=== PATIENT | female | born 1940 | race African-American/Black ===

== ENCOUNTER → 2024-06-22 | Outpatient (CLI) | payer OTHER, MEDICAID, SELFPAY ==
[2024-06-22 14:59] LABS: Basophils % (Auto) 0 % (0-2.5); Eosinophils # (Auto) 0.1 Thou/mm3 (0.0-0.5); Eosinophils % (Auto) 3 % (0-10); Hematocrit 26.7 % (36.0-46.0); Hemoglobin 8.9 g/dL (12.0-16.0); Immature Granulocytes % (Auto) 1 % (0-0); Immature Granulocytes Auto 0.02 Thou/mm3 (0.00-0.00); Lymphocytes # (Auto) 0.9 Thou/mm3 (1.0-4.8); Lymphocytes % (Auto) 23 % (10-50); Mean Corpuscular HGB Conc 33.3 g/dl (31.0-37.0); Mean Corpuscular Hemoglobin 33.1 pg (25.0-35.0); Mean Corpuscular Volume 99 fL (80-100); Monocytes # (Auto) 0.5 Thou/mm3 (0.0-0.8); Monocytes % (Auto) 12 % (0-12); Neutrophils # (Auto) 2.5 Thou/mm3 (1.8-7.7); Neutrophils % (Auto) 62 % (37-80); Nucleated Red Blood Cell % 0 /100 WBC (0); Platelet Count 150 Thou/mm3 (140-440); RDW Standard Deviation 57.7 fL (36.4-46.3); Red Blood Count 2.69 Miln/mm3 (4.00-5.20); White Blood Count 4.1 Thou/mm3 (3.6-11.0)
[2024-06-22 15:32] LABS: Alanine Aminotransferase 37 U/L (10-49); Albumin, Serum 4.6 gm/dL (3.4-4.8); Albumin/Globulin Ratio 1.8 (1.2-2.2); Alkaline Phosphatase 168 U/L (46-116); Anion Gap 7 (7-16); Aspartate Amino Transferase 23 U/L (0-34); BUN/Creatinine Ratio 6 Ratio (12-20); Bilirubin,Total 0.5 mg/dL (0.3-1.2); Blood Urea Nitrogen 20 mg/dL (9-23); Calcium 9.7 mg/dL (8.3-10.6); Calcium (Corrected) 9.7 mg/dL (8.5-10.1); Carbon Dioxide 28.7 mMol/L (20.0-31.0); Chloride 102 mMol/L (98-107); Creatinine (Component) 3.5 mg/dL (0.6-1.3); Globulin 2.6 gm/dL (2.3-3.5); Glucose 103 mg/dL (74-106); Osmolality,Calculated 278 (275-295); Potassium 3.5 mMol/L (3.4-5.1); Sodium 138 mMol/L (136-145); Total Protein 7.2 gm/dL (5.7-8.2); eGFR 12 See Note
== END | disposition home or self-care (01) ==
LOC: COPL 14:16
PROVIDERS: PCP Family Medicine; Referring Provider Family Medicine; Visit Provider Family Medicine
DX: D64.9 Anemia, unspecified (principal); R19.5 Other fecal abnormalities
CPT/HCPCS: 36415; 80053; 85025

== ENCOUNTER → 2024-11-28 | Outpatient (CLI) | payer OTHER, MEDICAID, SELFPAY ==
[2024-11-28 14:26] LABS: Basophils % (Auto) 0 % (0-2.5); Eosinophils # (Auto) 0.2 Thou/mm3 (0.0-0.5); Eosinophils % (Auto) 4 % (0-10); Hemoglobin 10.8 g/dL (12.0-16.0); Immature Granulocytes % (Auto) 0 % (0-0); Immature Granulocytes Auto 0.01 Thou/mm3 (0.00-0.00); Lymphocytes # (Auto) 0.9 Thou/mm3 (1.0-4.8); Lymphocytes % (Auto) 22 % (10-50); Mean Corpuscular HGB Conc 31.8 g/dl (31.0-37.0); Mean Corpuscular Hemoglobin 30.6 pg (25.0-35.0); Mean Corpuscular Volume 96 fL (80-100); Monocytes # (Auto) 0.6 Thou/mm3 (0.0-0.8); Monocytes % (Auto) 16 % (0-12); Neutrophils # (Auto) 2.3 Thou/mm3 (1.8-7.7); Neutrophils % (Auto) 57 % (37-80); Nucleated Red Blood Cell % 0 /100 WBC (0); Platelet Count 120 Thou/mm3 (140-440); RDW Standard Deviation 58.8 fL (36.4-46.3); Red Blood Count 3.53 Miln/mm3 (4.00-5.20)
== END | disposition home or self-care (01) ==
LOC: COPL 13:28
PROVIDERS: PCP Family Medicine; Referring Provider Nurse Practitioner Family; Visit Provider Nurse Practitioner Family
DX: I10 Essential (primary) hypertension (principal)
CPT/HCPCS: 36415; 82043; 82570; 85025

== ENCOUNTER → 2024-12-05 | Outpatient (CLI) | payer OTHER, MEDICAID, SELFPAY ==
[2024-12-05 10:49] LABS: Glucose Estimated Average 114 mg/dL (80-131); Hemoglobin A1C 5.6 % Hgb (4.8-6.0)
[2024-12-05 10:56] LABS: Alanine Aminotransferase 16 U/L (10-49); Albumin, Serum 3.9 gm/dL (3.4-4.8); Albumin/Globulin Ratio 1.4 (1.2-2.2); Alkaline Phosphatase 88 U/L (46-116); Anion Gap 11 (7-16); Aspartate Amino Transferase 13 U/L (0-34); BUN/Creatinine Ratio 6 Ratio (12-20); Bilirubin,Total 0.4 mg/dL (0.3-1.2); Blood Urea Nitrogen 41 mg/dL (9-23); Calcium 9.2 mg/dL (8.3-10.6); Calcium (Corrected) 9.3 mg/dL (8.5-10.1); Carbon Dioxide 26.7 mMol/L (20.0-31.0); Chloride 105 mMol/L (98-107); Cholesterol 133 mg/dL (132-200); Creatinine (Component) 7.4 mg/dL (0.6-1.3); Globulin 2.8 gm/dL (2.3-3.5); Glucose 108 mg/dL (74-106); HDL Cholesterol 65 mg/dL (40-60); LDL Cholesterol,Calculated 54 mg/dL (0-130); Osmolality,Calculated 296 (275-295); Potassium 4.6 mMol/L (3.4-5.1); Sodium 143 mMol/L (136-145); Thyroid Stimulating Hormone 2.12 uIU/mL (0.55-4.78); Total Protein 6.7 gm/dL (5.7-8.2); Triglycerides 71 mg/dL (30-150); eGFR 5 See Note
[2024-12-05 12:18] LABS: Creatinine MALB Rnd Ur 70 mg/dL (30-125); Microalbumin Creat Ratio 491 mg/gCrea (<30); Microalbumin, Random Urine 344 mg/L (0-300)
== END | disposition home or self-care (01) ==
LOC: COPL 09:27
PROVIDERS: PCP Family Medicine; Referring Provider Nurse Practitioner Family; Visit Provider Nurse Practitioner Family
DX: I10 Essential (primary) hypertension (principal)
CPT/HCPCS: 36415; 80053; 80061; 82043; 82570; 83036; 84443

== ENCOUNTER 2025-01-22 13:59 | Emergency (ER) | payer OTHER, MEDICARE, MEDICAID, SELFPAY ==
--- NOTE | 2025-01-22 14:07 | EKG_ITS ---
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
[2025-01-22 14:10] VITALS: BP 184/83; PULSE 64; RESP 18; TEMP 36.8; O2SAT 76; O2SAT 95; BMI 21.6
--- NOTE | 2025-01-22 14:15 | PC.NURSE ---
PT CAME IN WITH C/O SOB X 2 DAYS WITH INCREASED SOB TODAY. PT IS A DIALYSIS PT AND HAD DIALYSIS YESTERDAY AND PER PT SHE RECEIVED FULL TREATMENT. NO C/O PAIN. RESPIRATIONS EVEN AND UNLABORED AT THIS TIME. PT PLACED ON CC MONITOR. EKG DONE ON PT ARRIVAL
--- NOTE | 2025-01-22 16:03 | XR_ITS ---
Examination: PA lateral chest 2 views TECHNIQUE: Upright PA and lateral chest 2 views Date and time: January 22, 2025 1642 hours Comparison May 23, 2023 INDICATIONS: Weakness shortness of breath fever today. FINDINGS: Moderate CHF Vewc-dp-kakxpwva cardiac contour, prominent vascular congestion with perihilar edema Right base pneumonia Small bilateral pleural effusions Right internal jugular dialysis catheter tip SVC satisfactory position IMPRESSION: Moderate CHF Right base pneumonia
[2025-01-22 16:18] VITALS: BP 206/90; PULSE 56; RESP 15; TEMP 36.6; O2SAT 97
[2025-01-22 16:33] LABS: Basophils % (Auto) 0 % (0-2.5); Eosinophils # (Auto) 0.1 Thou/mm3 (0.0-0.5); Eosinophils % (Auto) 3 % (0-10); Hematocrit 30.5 % (36.0-46.0); Hemoglobin 9.8 g/dL (12.0-16.0); Immature Granulocytes % (Auto) 0 % (0-0); Immature Granulocytes Auto 0.01 Thou/mm3 (0.00-0.00); Lymphocytes # (Auto) 0.7 Thou/mm3 (1.0-4.8); Lymphocytes % (Auto) 18 % (10-50); Mean Corpuscular HGB Conc 32.1 g/dl (31.0-37.0); Mean Corpuscular Hemoglobin 32.8 pg (25.0-35.0); Mean Corpuscular Volume 102 fL (80-100); Monocytes # (Auto) 0.4 Thou/mm3 (0.0-0.8); Monocytes % (Auto) 10 % (0-12); Neutrophils # (Auto) 2.7 Thou/mm3 (1.8-7.7); Neutrophils % (Auto) 68 % (37-80); Nucleated Red Blood Cell % 0 /100 WBC (0); Platelet Count 130 Thou/mm3 (140-440); RDW Standard Deviation 61.7 fL (36.4-46.3); Red Blood Count 2.99 Miln/mm3 (4.00-5.20)
--- NOTE | 2025-01-22 16:41 | PC.NURSE ---
PT TO X-RAY
[2025-01-22 17:04] LABS: Alanine Aminotransferase < 7 U/L (10-49); Albumin, Serum 3.7 gm/dL (3.4-4.8); Albumin/Globulin Ratio 1.7 (1.2-2.2); Alkaline Phosphatase 72 U/L (46-116); Anion Gap 12 (7-16); Aspartate Amino Transferase 14 U/L (0-34); BUN/Creatinine Ratio 5 Ratio (12-20); Bilirubin,Total 0.5 mg/dL (0.3-1.2); Blood Urea Nitrogen 32 mg/dL (9-23); Calcium (Corrected) 9.2 mg/dL (8.5-10.1); Chloride 103 mMol/L (98-107); Estimated Creatinine Clearance 6.5 mL/min (>60); Globulin 2.2 gm/dL (2.3-3.5); Glucose 107 mg/dL (74-106); Osmolality,Calculated 295 (275-295); Potassium 4.2 mMol/L (3.4-5.1); Sodium 145 mMol/L (136-145); Total Protein 5.9 gm/dL (5.7-8.2); eGFR 6 See Note
[2025-01-22 17:10] VITALS: BP 187/87; PULSE 60; RESP 18; O2SAT 92
--- NOTE | 2025-01-22 17:21 | PD.EDSOB ---
ED SOB =RME/HPI General Chief Complaint: Shortness of Breath/Dyspnea Stated Complaint: SOB Time Seen by Provider: 01/22/25 15:44 Arrival date/time: 01/22/25 13:59 RME / HPI RME / HPI Narrative: 84 year old female with history of CAD s/p stenting, hypertension, ESRD on HD M/W/F presents to the ED for shortness of breath today. While in the ED patient reports earlier today her oxygen saturations were in the 60s. States she does have oxygen at home which she uses as needed although states she normally does not require oxygen. While in the ED denies feeling short of breath. Denies chest pain, cough, leg swelling or recent ilness. States she has not missed any dialysis treatments and was last dialyzed yesterday. Related Data Home Medications ?Medication ?Instructions ?Recorded ?Confirmed carvedilol 12.5 mg tablet (Coreg) 12.5 mg PO BID 12/29/17 05/23/23 atorvastatin 80 mg tablet 80 mg PO QDAY 09/14/19 05/23/23 clonidine HCl 0.2 mg tablet 0.2 mg PO TID 06/09/20 05/23/23 furosemide 40 mg tablet 40 mg PO BID 06/09/20 05/23/23 aspirin 81 mg tablet,delayed 81 mg PO QDAY 04/16/22 05/23/23 release hydroxyzine HCl 25 mg tablet 25 mg PO HS PRN Itching 04/16/22 05/23/23 losartan 100 mg tablet 100 mg PO QDAY 04/16/22 05/23/23 pantoprazole 40 mg tablet,delayed 40 mg PO QDAY 04/16/22 05/23/23 release nifedipine 90 mg tablet,extended 90 mg PO QDAY 09/20/22 05/23/23 release Previous Rx's ?Medication ?Instructions ?Recorded amoxicillin 875 mg-potassium 1 tab PO Q12H #10 tabs 01/22/25 clavulanate 125 mg tablet doxycycline monohydrate 100 mg 100 mg PO BID #14 caps 01/22/25 capsule Allergies Allergy/AdvReac Type Severity Reaction Status Date / Time ibuprofen (From Motrin) Allergy Severe Per Renal Verified 01/22/25 14:17 MD NONE to be GIVEn ketorolac (From Toradol) Allergy Severe Per Renal Verified 01/22/25 14:17 MD NONE TO BE GIVEN Review of Systems Review of Systems Systems Reviewed: All systems reviewed, normal except as documented Past Medical History Past Medical History CARDIAC: Positive Cardiac Disorders, Myocardial Infarction, Angina, Coronary Artery Disease, Hypercholesterolemia, Edema and Hypertension GASTROINTESTINAL: Positive Hemorrhoids GENITOURINARY: Positive Genitourinary Disorders, Renal Disease and Dialysis (M-W-F) REPRODUCTIVE: Positive Previous Pregnancies MUSCULOSKELETAL: Positive Musculoskeletal Disorders, Arthritis and Gout HEMATOLOGIC: Positive Anemia OTHER HISTORY: Positive Blood Transfusions Family History FAMILY HISTORY: Positive Family Gastrointestinal Problems Surgical History SURGICAL: Positive Coronary Stent, Cardiac Catheterization, Angiogram, Abdominal Surgery, Joint Replacement and Hysterectomy Social History SMOKING STATUS: Never smoker SECOND HAND EXPOSURE: No ED Exam Narrative Physical exam: GENERAL APPEARANCE: AxOx4, no obvious distress, nontoxic appearing HEENT: NC, AT. MMM. EOMI, clear conjunctiva, oropharynx clear. NECK: Supple without lymphadenopathy. No stiffness or restricted ROM. HEART: Normal rate and regular rhythm, normal S1/S1, no m/r/g LUNGS: Diminished breath sounds bilaterally. CTAB. No crackles or wheezes are heard. ABDOMEN: Soft, nontender, nondistended with good bowel sounds heard. BACK: No midline C/T/L spine pain or deformity, No CVAT, no obvious deformity. EXTREMITIES: Without cyanosis, clubbing or edema. MUSCULOSKELETAL: FROM of all major joints, no chest tenderness NEUROLOGICAL: Grossly nonfocal. Alert and oriented, moving all 4 extremities. CN not formally tested but appear grossly intact. Skin: Warm and dry without any rash. Course Quality Measures none Orders Category Date Time Status Bedside COVID-19 Antigen Test NOW Care 01/22/25 16:03 Active Bedside Influenza A&B Antigen Test NOW Care 01/22/25 16:03 Completed EKG (ED ONLY) *Do not use* NOW Care 01/22/25 14:48 Completed EKG (ED Only) Stat Exams 01/22/25 14:07 Draft XR chest 2V Stat Exams 01/22/25 16:03 Completed CBC Stat Lab 01/22/25 16:27 Completed CMP [Comprehensive Metabolic Panel] Stat Lab 01/22/25 16:27 Completed Doxycycline [Vibramycin] Med 01/22/25 17:39 Discontinued 100 mg PO X1 ONE cefTRIAXone [Rocephin] 1,000 mg Med 01/22/25 18:05 Discontinued Lidocaine 1% 20 ml [Xylocaine 1% 20 ML] 2.1 ml IM X1 cefTRIAXone/D5w 1gm IV premix [Rocephin/D5w 1gm IV Med 01/22/25 17:39 Discontinued premix] 1 gm in 50 ml IV X1 Reevaluation(s) Reevaluation #1: Patient reports she has been congested with some sweats at home. Chest xray here is essentially clear. I advised the patient wear oxygen around the clock and take the antibiotics. Instructed patient to follow up with PCP. At this time patient is saturating 92-93% on 4L nasal cannula. Time: 17:33 Vital Signs Vital signs: Vital Signs Temperature 98.2 F 01/22/25 14:10 Pulse Rate 64 01/22/25 14:10 Respiratory Rate 18 01/22/25 14:10 Blood Pressure 184/83 H 01/22/25 14:10 Pulse Oximetry (%) 95 01/22/25 14:10 Oxygen Delivery Method Nasal Cannula 01/22/25 14:10 Oxygen Flow Rate 6 01/22/25 14:10 Shortness of Breath / Dyspnea MDM Narrative MDM Narrative:: Sherrie Leiva am scribing for and in the presence of Dr. Cortez. Patient data External records reviewed:: [facility] previous records (I reviewed admission from 05/23/2023 through 05/26/2023) and EMS form Clinical information provided by:: patient and EMS Social determinants that could affect healthcare access:: none Patient has the following chronic illnesses:: CAD s/p stenting, hypertension, ESRD on HD M/W/F How is presenting disease/condition affected by chronic disease/condition?: exacerbated by Evaluation data The following diagnostics were reviewed and interpreted by me:: lab results, radiology exam(s) and EKG tracing(s) (EKG 01/22/2025 @ 14:07. Sinus rhythm, rate 62, no STEMI. ) Lab and/or radiology exams considered but not ordered:: None Interpretation Summary: Ordering Physician: Ky Cortez MD Date of Service: 01/22/25 Procedure(s): XR chest 2V Accession Number(s): [id number] cc: Ky Cortez MD; Ap Dale MD; Veronica Brian MD~ Examination: PA lateral chest 2 views TECHNIQUE: Upright PA and lateral chest 2 views Date and time: January 22, 2025 1642 hours Comparison May 23, 2023 INDICATIONS: Weakness shortness of breath fever today. FINDINGS: Moderate CHF Rlgl-sy-kwduviwl cardiac contour, prominent vascular congestion with perihilar edema Right base pneumonia Small bilateral pleural effusions Right internal jugular dialysis catheter tip SVC satisfactory position IMPRESSION: Moderate CHF Right base pneumonia Dictated By: Ap Dale MD Signed By: <Electronically signed by Ap Dale MD in OV> 01/22/25 1729 Medications / Prescriptions Medications or Prescriptions considered but not ordered:: None Medication administrations:: Medication Administration History Discontinued Medications Ceftriaxone Sodium 1,000 mg/ (Lidocaine HCl 2.1 ml) 0 mg IM X1 ONE Stop: 01/22/25 18:06 Last Admin: 01/22/25 18:23 Dose: 1,000 mg Documented By: DO Doxycycline Hyclate (Doxycycline 100 Mg Tablet) 100 mg PO X1 ONE Stop: 01/22/25 17:40 Last Admin: 01/22/25 17:56 Dose: 100 mg Documented By: DO Ceftriaxone Sodium/Dextrose (Rocephin/D5w 1gm Iv Premix) 1 gm in 50 mls @ 100 mls/hr IV X1 ONE Stop: 01/22/25 18:08 Last Admin: 01/22/25 18:04 Dose: Not Given Documented By: DO Non-Admin Reason: route changed See above Consultations Consultation(s) initiated? (list below): No Diagnosis Shortness of Breath Differential Diagnosis: acute exacerbation of chronic obstructive airways disease, congestive heart failure, community acquired pneumonia and other (pleural effusion ) Most likely diagnosis given after review of the tests above:: Pneumonia ESRD on HD Admission Indicated Admission indicated?: not indicated Admission Request Was there a request for admission?: No Disposition Plan Disposition Plan: Discharge Discharge Attestation Discharge Attestation: The patient and all family members were given an opportunity to ask questions and understood the discharge instructions. Discharge instructions specifically effects, indications for sooner follow up or return to the emergency department, and the expected course of current diagnosis. Patient condition: Stable Discharge Plan Plan Patient Disposition: HOME (Self Care) Prescriptions/Referrals Prescriptions/Med Rec: New amoxicillin-pot clavulanate 875-125 mg tablet 1 tab PO Q12H Qty: 10 0RF doxycycline monohydrate 100 mg capsule 100 mg PO BID Qty: 14 0RF No Action carvedilol [Coreg] 12.5 mg Tablet 12.5 mg PO BID furosemide 40 mg Tablet 40 mg PO BID clonidine HCl 0.2 mg Tablet 0.2 mg PO TID aspirin 81 mg Tablet,Delayed Release (Dr/Ec) 81 mg PO QDAY pantoprazole 40 mg Tablet,Delayed Release (Dr/Ec) 40 mg PO QDAY hydroxyzine HCl 25 mg Tablet 25 mg PO HS PRN (Reason: Itching) losartan 100 mg Tablet 100 mg PO QDAY atorvastatin 80 mg Tablet 80 mg PO QDAY nifedipine 90 mg Tablet Extended Release 90 mg PO QDAY Referrals: Veronica Brian MD [Primary Care Provider] - In 1 week Problem List Clinical Impression: Pneumonia, End-stage renal disease (ESRD) Patient/Caregiver Discharge Instructions Education Materials: ED Chronic Kidney Disease (CKD), ED Pneumonia (Adult) Additional Instructions: Follow-up your primary doctor in 2-3 days for recheck. Wear your home oxygen at 3L around the clock. Return ER sooner if symptoms worsen or for any new or concerning issues. Print Language: Portuguese Stand Alone Forms: Ada Award Info., Patient Portal Info Letter
[2025-01-22] MEDS: DOXYCYCLINE 100 MG TABLET PO (17:56)
[2025-01-22 18:14] VITALS: BP 192/94; PULSE 58; RESP 15; TEMP 36.7; O2SAT 96
[2025-01-22] MEDS: cefTRIAXone 1,000 MG, LIDOCAINE 1% 20 ML 2.1 ML IM (18:23)
[2025-01-22 19:13] VITALS: BP 198/86; PULSE 60; RESP 14; TEMP 37; O2SAT 99
[2025-01-22 20:36] VITALS: BP 160/85; PULSE 75; RESP 14; TEMP 37; O2SAT 99
== END 2025-01-22 20:37 | disposition home or self-care (01) ==
PROVIDERS: Emergency Provider Emergency Medicine; PCP Family Medicine
DX: I13.2 Hypertensive heart and chronic kidney disease with heart failure and with stage 5 chronic kidney disease, or end stage renal disease (principal); I50.9 Heart failure, unspecified; J18.9 Pneumonia, unspecified organism; N18.6 End stage renal disease; R94.31 Abnormal electrocardiogram [ECG] [EKG]; I25.119 Atherosclerotic heart disease of native coronary artery with unspecified angina pectoris; I25.2 Old myocardial infarction; E78.00 Pure hypercholesterolemia, unspecified; Z95.5 Presence of coronary angioplasty implant and graft
CPT/HCPCS: 36415; 71046; 80053; 85025; 87400; 87811; 93005; 96372; 99283; J0696; J3490; A9270

== ENCOUNTER → 2025-04-01 | Outpatient (CLI) | payer OTHER, MEDICAID, SELFPAY ==
--- NOTE | 2025-04-01 13:25 | XR_ITS ---
Examination: Lumbar spine, 5 views Technique: Lumbar spine AP, lateral, coned lateral lower lumbar spine, bilateral obliques 5 views Date and time: April 01, 2025 1346 hours INDICATIONS: Low back pain years. FINDINGS: Severe osteopenia Left hip hemiarthroplasty with satisfactory alignment Diffuse prominent facet arthropathy Incidental note large amounts of stool throughout the colon No acute lumbar fracture Mild disc narrowing L5-S1 L4-L5 5 mm soft tissue lumbar disc bulge L3-L4 partially calcified 7 mm lumbar disc bulge IMPRESSION: Severe osteopenia No lumbar fractures Calcified lumbar disc bulges L4-L5, L3-L4
== END | disposition home or self-care (01) ==
LOC: CDIM 13:15
PROVIDERS: Referring Provider Internal Medicine Nephrology; Visit Provider Internal Medicine Nephrology
DX: M85.88 Other specified disorders of bone density and structure, other site (principal); M51.86 Other intervertebral disc disorders, lumbar region
CPT/HCPCS: 72110

== ENCOUNTER 2025-04-20 17:46 | Emergency (ER) | payer OTHER, MEDICAID, SELFPAY ==
[2025-04-20 18:03] VITALS: BP 171/89; PULSE 64; RESP 18; TEMP 36.4; O2SAT 95; BMI 22.3
--- NOTE | 2025-04-20 18:10 | EKG_ITS ---
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
--- NOTE | 2025-04-20 18:31 | PD.EDSYNC ---
ED Syncope RME/HPI General Chief Complaint: Syncope / Near Syncope Stated Complaint: NEAR SYNCOPE Time Seen by Provider: 04/20/25 18:27 Arrival date/time: 04/20/25 17:46 RME / HPI RME / HPI narrative: 84-year-old female patient with significant history of hypertension, ESRD on hemodialysis last hemodialysis yesterday, came in for evaluation regarding sudden onset of dizziness. Patient was standing and developed sudden onset of dizziness, severity moderate. Patient also vomited once. Nonbloody. Patient denies any upper or lower extremity weakness. On my initial evaluation patient dizziness is totally gone. Related Data Home Medications ?Medication ?Instructions ?Recorded ?Confirmed carvedilol 12.5 mg tablet (Coreg) 12.5 mg PO BID 12/29/17 05/23/23 atorvastatin 80 mg tablet 80 mg PO QDAY 09/14/19 05/23/23 clonidine HCl 0.2 mg tablet 0.2 mg PO TID 06/09/20 05/23/23 furosemide 40 mg tablet 40 mg PO BID 06/09/20 05/23/23 aspirin 81 mg tablet,delayed 81 mg PO QDAY 04/16/22 05/23/23 release hydroxyzine HCl 25 mg tablet 25 mg PO HS PRN Itching 04/16/22 05/23/23 losartan 100 mg tablet 100 mg PO QDAY 04/16/22 05/23/23 pantoprazole 40 mg tablet,delayed 40 mg PO QDAY 04/16/22 05/23/23 release nifedipine 90 mg tablet,extended 90 mg PO QDAY 09/20/22 05/23/23 release Previous Rx's ?Medication ?Instructions ?Recorded amoxicillin 875 mg-potassium 1 tab PO Q12H #10 tabs 01/22/25 clavulanate 125 mg tablet doxycycline monohydrate 100 mg 100 mg PO BID #14 caps 01/22/25 capsule Allergies Allergy/AdvReac Type Severity Reaction Status Date / Time ibuprofen (From Motrin) Allergy Severe Per Renal Verified 01/22/25 14:17 MD NONE to be GIVEn ketorolac (From Toradol) Allergy Severe Per Renal Verified 01/22/25 14:17 MD NONE TO BE GIVEN Review of Systems Review of Systems Narrative Review of Systems: Review of system reviewed and within normal limits except mentioned in HPI ED Exam Narrative Physical exam: VITAL SIGNS: Reviewed. GENERAL APPEARANCE: Alert and interactive, follows commands, no acute distress, HEAD AND FACE: Non-traumatic. ENT: PERRL, pink conjunctivitis, eyelid no trauma, Mucous membrane moist. NECK: Supple, nontender, no nuchal rigidity. CHEST: No tenderness, no crepitus, no paradoxical movement, no retractions. Right chest permacath intact LUNGS: Clear, well ventilated, symmetric, no rales, no wheezing, no ronchi, no stridor, good breath sounds bilaterally. HEART: Regular rate, regular rhythm, no murmur, no gallops. ABDOMEN: Soft, positive bowel sounds, nondistended, no guarding, nontender, no rebound, no masses, RECTAL: Deferred. GENITAL: Deferred. NEUROLOGICAL: Gross motor function intact sensory function intact, Appropriate for age. MUSCULOSKELETAL: low back nontender, full range of motion. EXTREMITIES: Nontender, full range of motion. SKIN: Color pink, dry, no rash, no lacerations, no abrasions, no contusions. LYMPHATICS: Deferred. Course Quality Measures none Orders Category Date Time Status EKG (ED ONLY) *Do not use* NOW Care 04/20/25 18:10 Completed EKG (ED Only) Stat Exams 04/20/25 18:10 Draft CBC Stat Lab 04/20/25 18:43 Completed Comprehensive Metabolic Panel Stat Lab 04/20/25 18:43 Completed Partial Thromboplastin Time Stat Lab 04/20/25 18:43 Completed Prothrombin Time with INR Stat Lab 04/20/25 18:43 Completed Urinalysis, C/S if Indicated Stat Lab 04/20/25 18:31 Ordered hydrALAZINE HCL [Apresoline] Med 04/20/25 21:45 Once 50 mg PO X1 ONE Vital Signs Vital signs: Vital Signs Temperature 97.6 F 04/20/25 18:03 Pulse Rate 64 04/20/25 18:03 Respiratory Rate 18 04/20/25 18:03 Blood Pressure 171/89 H 04/20/25 18:03 Pulse Oximetry (%) 95 04/20/25 18:03 Oxygen Delivery Method Room Air 04/20/25 18:03 Syncope MDM Narrative MDM Narrative:: 84-year-old female patient with significant history of hypertension, ESRD on hemodialysis last hemodialysis yesterday, came in for evaluation regarding sudden onset of dizziness. Patient was standing and developed sudden onset of dizziness, severity moderate. Patient also vomited once. Nonbloody. Patient denies any upper or lower extremity weakness. On my initial evaluation patient dizziness is totally gone. EKG sinus rhythm, ventricular rate of 63 bpm, OH interval 160 MS, no ST segment elevation or depression noted. Patient CBC came back unremarkable. Patient's CMP showed BUN of 33, creatinine of 6.5 potassium is normal Patient is not having any recurrence of symptoms while in the emergency room. Stable for discharge home Patient data External records reviewed:: None Clinical information provided by:: patient Social determinants that could affect healthcare access:: none Patient has the following chronic illnesses:: ESRD hypertension How is presenting disease/condition affected by chronic disease/condition?: exacerbated by Evaluation data The following diagnostics were reviewed and interpreted by me:: lab results and EKG tracing(s) Lab and/or radiology exams considered but not ordered:: None Interpretation Summary: See results in MDM Medications / Prescriptions Medications or Prescriptions considered but not ordered:: None Medication administrations:: Medication Administration History Hydralazine HCl (Hydralazine Hcl 25 Mg Tablet) 50 mg PO X1 ONE Stop: 04/20/25 21:46 Hydralazine Consultations Consultation(s) initiated? (list below): No Diagnosis Syncope Differential Diagnosis: syncope due to orthostatic hypotension, vasovagal syncope and dehydration Most likely diagnosis given after review of the tests above:: Near-syncope Admission Indicated Admission indicated?: not indicated Admission Request Was there a request for admission?: No Disposition Plan Disposition Plan: Discharge Discharge Attestation Discharge Attestation: The patient and all family members were given an opportunity to ask questions and understood the discharge instructions. Discharge instructions specifically effects, indications for sooner follow up or return to the emergency department, and the expected course of current diagnosis. Patient condition: Stable Discharge Plan Plan Patient Disposition: HOME (Self Care) Discharge Disposition comment: Stable Prescriptions/Referrals Prescriptions/Med Rec: No Action carvedilol [Coreg] 12.5 mg Tablet 12.5 mg PO BID furosemide 40 mg Tablet 40 mg PO BID clonidine HCl 0.2 mg Tablet 0.2 mg PO TID aspirin 81 mg Tablet,Delayed Release (Dr/Ec) 81 mg PO QDAY pantoprazole 40 mg Tablet,Delayed Release (Dr/Ec) 40 mg PO QDAY hydroxyzine HCl 25 mg Tablet 25 mg PO HS PRN (Reason: Itching) losartan 100 mg Tablet 100 mg PO QDAY atorvastatin 80 mg Tablet 80 mg PO QDAY nifedipine 90 mg Tablet Extended Release 90 mg PO QDAY amoxicillin-pot clavulanate 875-125 mg tablet 1 tab PO Q12H Qty: 10 0RF doxycycline monohydrate 100 mg capsule 100 mg PO BID Qty: 14 0RF Referrals: Olvin Brian MD [Primary Care Provider] - In 1 week Problem List Clinical Impression: Near syncope Patient/Caregiver Discharge Instructions Discharge Activity: activity as tolerated Education Materials: Causes of Syncope Additional Instructions: Thank you for the opportunity for serving you today. You are stable for discharged . You are advised to: Follow-up with your PCP in 1 to 2 days Return to ED for worsening of symptoms Print Language: Israeli Stand Alone Forms: Ada Award Info., Patient Portal Info Letter PA/GABRIEL Supervising Physician RANDY/GABRIEL Supervising Physician: MD Darwin
[2025-04-20 19:26] LABS: Basophils # (Auto) 0.0 Thou/mm3 (0.0-0.2); Basophils % (Auto) 0 % (0-2.5); Eosinophils # (Auto) 0.3 Thou/mm3 (0.0-0.5); Eosinophils % (Auto) 6 % (0-10); Hematocrit 39.5 % (36.0-46.0); Hemoglobin 12.7 g/dL (12.0-16.0); Immature Granulocytes Auto 0.02 Thou/mm3 (0.00-0.00); Lymphocytes # (Auto) 1.0 Thou/mm3 (1.0-4.8); Lymphocytes % (Auto) 21 % (10-50); Mean Corpuscular HGB Conc 32.2 g/dl (31.0-37.0); Mean Corpuscular Hemoglobin 31.2 pg (25.0-35.0); Mean Corpuscular Volume 97 fL (80-100); Monocytes # (Auto) 0.6 Thou/mm3 (0.0-0.8); Monocytes % (Auto) 12 % (0-12); Neutrophils # (Auto) 2.9 Thou/mm3 (1.8-7.7); Neutrophils % (Auto) 60 % (37-80); Nucleated Red Blood Cell # 0.00 Thou/mm3 (0.00-0.00); Nucleated Red Blood Cell % 0 /100 WBC (0); Platelet Count 100 Thou/mm3 (140-440); RDW Standard Deviation 53.1 fL (36.4-46.3); Red Blood Count 4.07 Miln/mm3 (4.00-5.20); White Blood Count 4.9 Thou/mm3 (3.6-11.0)
[2025-04-20 19:38] LABS: INR 1.2 (0.9-1.3); Partial Thromboplastin Time 26.0 Seconds (22.0-36.0); Prothrombin Time 13.3 Seconds (9.0-12.2)
--- NOTE | 2025-04-20 20:40 | PC.NURSE ---
pt transported to icu, with RT and on a monitor, hand off to Francesco, RN
[2025-04-20 20:46] LABS: Alanine Aminotransferase 93 U/L (10-49); Albumin, Serum 3.7 gm/dL (3.4-4.8); Albumin/Globulin Ratio 1.2 (1.2-2.2); Alkaline Phosphatase 118 U/L (46-116); Anion Gap 15 (7-16); Aspartate Amino Transferase 118 U/L (0-34); BUN/Creatinine Ratio 5 Ratio (12-20); Bilirubin,Total 0.4 mg/dL (0.3-1.2); Blood Urea Nitrogen 33 mg/dL (9-23); Calcium 9.5 mg/dL (8.3-10.6); Calcium (Corrected) 9.7 mg/dL (8.5-10.1); Carbon Dioxide 26.4 mMol/L (20.0-31.0); Chloride 99 mMol/L (98-107); Creatinine (Component) 6.5 mg/dL (0.6-1.3); Estimated Creatinine Clearance 5.8 mL/min (>60); Globulin 3.1 gm/dL (2.3-3.5); Glucose 90 mg/dL (74-106); Osmolality,Calculated 286 (275-295); Potassium 4.4 mMol/L (3.4-5.1); Sodium 140 mMol/L (136-145); Total Protein 6.8 gm/dL (5.7-8.2); eGFR 6 See Note
[2025-04-20 21:13] VITALS: BP 191/85; PULSE 56; RESP 19; TEMP 36.9; O2SAT 98
[2025-04-20 22:02] VITALS: BP 191/96; PULSE 59
[2025-04-20 23:04] VITALS: BP 148/73; PULSE 61; TEMP 36.9; O2SAT 98
== END 2025-04-20 23:06 | disposition home or self-care (01) ==
PROVIDERS: Emergency Provider Nurse Practitioner Family; PCP Family Medicine
DX: R55 Syncope and collapse (principal); R94.31 Abnormal electrocardiogram [ECG] [EKG]; I12.0 Hypertensive chronic kidney disease with stage 5 chronic kidney disease or end stage renal disease; N18.6 End stage renal disease; Z99.2 Dependence on renal dialysis
CPT/HCPCS: 36415; 80053; 81001; 85025; 85610; 85730; 93005; 99283; A9270

== ENCOUNTER 2025-04-21 10:23 | Emergency (ER) | payer OTHER, MEDICAID, SELFPAY ==
[2025-04-21] VITALS (12 sets, daily range): BP systolic 154–189; BP diastolic 81–111; PULSE 58–71; RESP 15–18; TEMP 36–36.7; O2SAT 82–95; BMI 20.9
--- NOTE | 2025-04-21 10:49 | PC.NURSE ---
PATIENT CAME IN WITH C/O DIZZINESS WITH NEAR SYNCOPAL EPISODE. NEGATIVE LOC, GCS 15. DENIES ANY PAIN. PT WAS SEEN HERE YESTERDAY FOR SAME AND WAS DISCHARGED HOME. 02 SATS ARE AT 82%RA. PT STATES SHE SOMETIMES WEARS OXYGEN. DENIES SOB. 02 PLACED AT 3L VIA NC. SATS INCREASED TO 92%. CHART UP TO BE SEEN. WILL CONTINUE TO MONITOR
--- NOTE | 2025-04-21 11:11 | PD.EDDIZZY ---
ED Dizzyness RME/HPI General Chief Complaint: Dizziness Stated Complaint: WEAKNESS Time Seen by Provider: 04/21/25 11:00 Arrival date/time: 04/21/25 10:23 Limitations: no limitations RME / HPI RME / HPI Narrative: 85 year old female with history of CAD s/p stenting, hypertension, ESRD on HD (M/W/F) presents to the ED BIBA from home for evaluation of dizziness that began while sitting with family today. Described dizziness as feeling very faint and globally weak with no known modifying factors. Denies chest pain, cough, or shortness of breath. Patient reports she had experienced similar dizziness yesterday and evaluated here. Per EMR review, patients labs were unremarkable for acute findings and discharged home with instructions to follow up with PCP in 1-2 days. Patient denies any history of dizziness prior to 2 days ago. Related Data Home Medications ?Medication ?Instructions ?Recorded ?Confirmed carvedilol 12.5 mg tablet (Coreg) 12.5 mg PO BID 12/29/17 05/23/23 atorvastatin 80 mg tablet 80 mg PO QDAY 09/14/19 05/23/23 clonidine HCl 0.2 mg tablet 0.2 mg PO TID 06/09/20 05/23/23 furosemide 40 mg tablet 40 mg PO BID 06/09/20 05/23/23 aspirin 81 mg tablet,delayed 81 mg PO QDAY 04/16/22 05/23/23 release hydroxyzine HCl 25 mg tablet 25 mg PO HS PRN Itching 04/16/22 05/23/23 losartan 100 mg tablet 100 mg PO QDAY 04/16/22 05/23/23 pantoprazole 40 mg tablet,delayed 40 mg PO QDAY 04/16/22 05/23/23 release nifedipine 90 mg tablet,extended 90 mg PO QDAY 09/20/22 05/23/23 release Previous Rx's ?Medication ?Instructions ?Recorded amoxicillin 875 mg-potassium 1 tab PO Q12H #10 tabs 01/22/25 clavulanate 125 mg tablet doxycycline monohydrate 100 mg 100 mg PO BID #14 caps 01/22/25 capsule meclizine 12.5 mg tablet 12.5 mg PO TID PRN dizziness #14 04/21/25 tabs Allergies Allergy/AdvReac Type Severity Reaction Status Date / Time ibuprofen (From Motrin) Allergy Severe Per Renal Verified 01/22/25 14:17 MD NONE to be GIVEn ketorolac (From Toradol) Allergy Severe Per Renal Verified 01/22/25 14:17 MD NONE TO BE GIVEN Review of Systems Review of Systems Systems Reviewed: All systems reviewed, normal except as documented Past Medical History Past Medical History CARDIAC: Positive Cardiac Disorders, Myocardial Infarction, Angina, Coronary Artery Disease, Hypercholesterolemia, Edema and Hypertension GASTROINTESTINAL: Positive Hemorrhoids GENITOURINARY: Positive Genitourinary Disorders, Renal Disease and Dialysis REPRODUCTIVE: Positive Previous Pregnancies MUSCULOSKELETAL: Positive Musculoskeletal Disorders, Arthritis and Gout HEMATOLOGIC: Positive Anemia OTHER HISTORY: Positive Blood Transfusions Family History FAMILY HISTORY: Positive Family Gastrointestinal Problems Surgical History SURGICAL: Positive Coronary Stent, Cardiac Catheterization, Angiogram, Abdominal Surgery, Joint Replacement and Hysterectomy Social History SMOKING STATUS: Never smoker SECOND HAND EXPOSURE: No ED Exam General Limitations: Present no limitations General appearance: Present alert and in no apparent distress Head Head exam: Present atraumatic, normocephalic and normal inspection Eye Eye exam: Present normal appearance, PERRL and EOMI ENT ENT exam: Present normal exam, normal oropharynx and mucous membranes moist Neck Neck exam: Present normal inspection, full ROM and trachea midline Chest Chest inspection: Present normal inspection and symmetric chest wall rise Respiratory Respiratory exam: Present normal lung sounds bilaterally Cardiovascular Cardiovascular exam: Present regular rate, normal rhythm and normal heart sounds Abdominal Exam Abdominal exam: Present soft and normal bowel sounds Extremities Exam Extremities exam: Present normal inspection and full ROM Back Exam Back exam: Present normal inspection and full ROM Neurological Exam Neurological exam: Present alert, oriented X3 and CN II-XII intact Psychiatric Psychiatric exam: Present normal affect and normal mood Skin Skin exam: Present warm, dry, intact and normal color Course Quality Measures none Orders Category Date Time Status Mover Helper NOW Care 04/21/25 11:40 Active Continuous Pulse Oximetry NOW Care 04/21/25 11:40 Completed EKG (ED ONLY) *Do not use* NOW Care 04/21/25 11:40 Completed Insert IV NOW Care 04/21/25 11:[address] head/brain wo con Stat Exams 04/21/25 11:40 Completed EKG (ED Only) Stat Exams 04/21/25 11:40 Draft XR chest 1V portable Stat Exams 04/21/25 11:40 Completed CBC Stat Lab 04/21/25 13:00 Completed Comprehensive Metabolic Panel Stat Lab 04/21/25 13:00 Completed Partial Thromboplastin Time Stat Lab 04/21/25 13:00 Completed Prothrombin Time with INR Stat Lab 04/21/25 13:00 Completed Troponin I Stat Lab 04/21/25 13:00 Completed Troponin I Stat Lab 04/21/25 16:31 Completed Losartan [Cozaar] Med 04/21/25 13:53 Discontinued 50 mg PO X1 ONE Meclizine HCl [Antivert] Med 04/21/25 16:14 Discontinued 12.5 mg PO X1 ONE NIFEdipine [Procardia Xl] Med 04/21/25 13:53 Discontinued 60 mg PO X1 ONE Sod Polystyrene Sulfon Susp [Kayexalate Susp] Med 04/21/25 15:06 Discontinued 15 gm PO X1 ONE Sodium Chloride 0.9% 1000 ml [Ns] 1,000 ml Med 04/21/25 11:40 Discontinued IV 100 mls/hr carVEDILOL [Coreg] Med 04/21/25 13:53 Discontinued 6.25 mg PO X1 ONE cloNIDine HCL [Catapres] Med 04/21/25 15:32 Discontinued 0.2 mg PO X1 ONE hydrALAZINE INJ [Apresoline Inj] Med 04/21/25 16:55 Discontinued 5 mg IVP X1 ONE Oxygen Delivery NOW RT 04/21/25 11:40 Active Vital Signs Vital signs: Vital Signs Temperature 96.8 F 04/21/25 10:40 Pulse Rate 61 04/21/25 10:40 Respiratory Rate 18 04/21/25 10:40 Blood Pressure 154/81 H 04/21/25 10:40 Pulse Oximetry (%) 82 L 04/21/25 10:40 Oxygen Delivery Method Room Air 04/21/25 10:40 Dizziness MDM Narrative MDM Narrative:: Sherrie Leiva am scribing for and in the presence of Dr. Nguyễn. Patient data External records reviewed:: [facility] previous records (I reviewed ED visit on 04/20/2025 ) and EMS form Clinical information provided by:: patient and EMS Social determinants that could affect healthcare access:: none Patient has the following chronic illnesses:: CAD s/p stenting, hypertension, ESRD on HD (M/W/F) How is presenting disease/condition affected by chronic disease/condition?: exacerbated by Evaluation data The following diagnostics were reviewed and interpreted by me:: lab results, radiology exam(s) and EKG tracing(s) (04/21/2025 @ 11:59 AM. NSR, rate 64, ST deviation, moderate T-wave abnormality in V1 through V4, no acute ischemic changes, VA 142 ms, QRS 83 ms ) Lab and/or radiology exams considered but not ordered:: None Interpretation Summary: Ordering Physician: Fredy Nguyễn MD Date of Service: 04/21/25 Procedure(s): XR chest 1V portable Accession Number(s): [id number] cc: Fredy Nguyễn MD; Ap Dale MD; NO PRIMARY/FAMILY,PHYSICIAN~ Examination: AP chest single view Technique: AP portable semiupright chest single view. Date and time: April 21, 2025, 12 0 2:00 PM, comparison January 22, 2025. Indications: Coughing beginning 3 days ago. Findings: Moderate enlargement cardiac contour. Prominence of the pulmonary vasculature. Suspicious for subtle edema at the lung bases. No lobar pneumonia. Right internal jugular dialysis catheter tip SVC satisfactory position Impression: Mild heart failure. No lobar pneumonia. Dictated By: Ap Dale MD Signed By: <Electronically signed by Ap Dale MD in OV> 04/21/25 1418 Ordering Physician: Fredy Nguyễn MD Date of Service: 04/21/25 Procedure(s): CT head/brain wo con Accession Number(s): [id number] cc: Fredy Nguyễn MD; Ap Dale MD; NO PRIMARY/FAMILY,PHYSICIAN~ Examination: CT brain head without contrast. 2-D sagittal coronal reconstructions Date and time of exam:April 21, 2025, 12:25 PM Indications: Dizziness episodes beginning 2 days ago. Comparison: February 01, 2023 CTDI: vol (mGy):47.5 DLP: (mGycm):946. Technique: Multiple CT axial sections of the brain have been obtained, 5 mm slice thickness. Contrast has not been administered. 2-D sagittal, coronal reconstructions have been obtained Low dose protocols were performed. One or more of the following dose reduction techniques were used; automated exposure control, adjustment of the mA and/or KV according to patient size, use of iterative reconstruction technique. Findings: No significant ventricular enlargement. Intra-axial or extra-axial hemorrhage density is not seen. No mass effect or midline shift Basal cisterns are not remarkable. Fourth ventricle is midline. Cranial vault intact. Impression: Negative for acute hemorrhage, mass effect or midline shift Advise clinical correlation and follow-up accordingly. Dictated By: Ap Dale MD Signed By: <Electronically signed by Ap Dale MD in OV> 04/21/25 9298 Medications / Prescriptions Medications or Prescriptions considered but not ordered:: None Medication administrations:: Medication Administration History Discontinued Medications Carvedilol (Carvedilol 3.125 Mg Tablet) 6.25 mg PO X1 ONE Stop: 04/21/25 13:54 Last Admin: 04/21/25 14:28 Dose: 6.25 mg Documented By: MO Clonidine (Clonidine Hcl 0.1 Mg Tablet) 0.2 mg PO X1 ONE Stop: 04/21/25 15:33 Last Admin: 04/21/25 15:46 Dose: 0.2 mg Documented By: MO Hydralazine HCl (Hydralazine Inj 20 Mg/Ml Vial) 5 mg IVP X1 ONE Stop: 04/21/25 16:56 Last Admin: 04/21/25 17:06 Dose: 5 mg Documented By: MO Sodium Chloride (Ns) 1,000 mls @ 100 mls/hr IV .Q10H ONE Stop: 04/21/25 21:39 Last Admin: 04/21/25 13:28 Dose: Not Given Documented By: DO Non-Admin Reason: Cancelled by Provider Losartan Potassium (Losartan Potassium 25 Mg Tablet) 50 mg PO X1 ONE Stop: 04/21/25 13:54 Last Admin: 04/21/25 14:28 Dose: 50 mg Documented By: MO Meclizine HCl (Meclizine Hcl 25 Mg Tablet) 12.5 mg PO X1 ONE Stop: 04/21/25 16:15 Last Admin: 04/21/25 16:59 Dose: 12.5 mg Documented By: MO Nifedipine (Nifedipine Xl 30 Mg Tabcr) 60 mg PO X1 ONE Stop: 04/21/25 13:54 Last Admin: 04/21/25 14:29 Dose: 60 mg Documented By: MO Sodium Polystyrene Sulfonate (Sod Polystyrene Sulfon Susp 15 Gm/60 Ml Btl) 15 gm PO X1 ONE Stop: 04/21/25 15:07 Last Admin: 04/21/25 15:46 Dose: 15 gm Documented By: MO See above Consultations Consultation(s) initiated? 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 Santiago. Discussed todays lab results and states the potassium is not at a level that requires emergent dialysis today. Diagnosis Dizziness Differential Diagnosis: adverse reaction to drug, benign paroxysmal positional vertigo, orthostatic hypotension, cerebrovascular accident and transient cerebral ischemia Most likely diagnosis given after review of the tests above:: Dizziness ESRD on HD Hypertension Vertigo Admission Indicated Admission indicated?: not indicated Admission Request Was there a request for admission?: No Disposition Plan Disposition Plan: Discharge Discharge Attestation Discharge Attestation: The patient and all family members were given an opportunity to ask questions and understood the discharge instructions. Discharge instructions specifically effects, indications for sooner follow up or return to the emergency department, and the expected course of current diagnosis. Patient condition: Stable Discharge Plan Plan Patient Disposition: HOME (Self Care) Prescriptions/Referrals Prescriptions/Med Rec: New meclizine 12.5 mg tablet 12.5 mg PO TID MDD 3 PRN (Reason: dizziness) Qty: 14 0RF No Action carvedilol [Coreg] 12.5 mg Tablet 12.5 mg PO BID furosemide 40 mg Tablet 40 mg PO BID clonidine HCl 0.2 mg Tablet 0.2 mg PO TID aspirin 81 mg Tablet,Delayed Release (Dr/Ec) 81 mg PO QDAY pantoprazole 40 mg Tablet,Delayed Release (Dr/Ec) 40 mg PO QDAY hydroxyzine HCl 25 mg Tablet 25 mg PO HS PRN (Reason: Itching) losartan 100 mg Tablet 100 mg PO QDAY atorvastatin 80 mg Tablet 80 mg PO QDAY nifedipine 90 mg Tablet Extended Release 90 mg PO QDAY amoxicillin-pot clavulanate 875-125 mg tablet 1 tab PO Q12H Qty: 10 0RF doxycycline monohydrate 100 mg capsule 100 mg PO BID Qty: 14 0RF Referrals: No Primary/Family,Physician [Primary Care Provider] - In 1 week Problem List Clinical Impression: Dizziness, End stage renal disease on dialysis, Hypertension, Benign paroxysmal positional vertigo Patient/Caregiver Discharge Instructions Discharge Activity: activity as tolerated Education Materials: Controlling High Blood Pressure, Blood Pressure Check Steps, ED BPV Vertigo Additional Instructions: Follow-up with your primary care doctor in 3 to 5 days for recheck. You can return to the emergency department sooner if symptoms worsen or if you notice any new, concerning issues. You may also look up Jensen's maneuver which can help with your dizziness. Print Language: Romansh Stand Alone Forms: Ada Award Info., Patient Portal Info Letter
--- NOTE | 2025-04-21 11:40 | EKG_ITS ---
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
--- NOTE | 2025-04-21 11:40 | XR_ITS ---
Examination: CT brain head without contrast. 2-D sagittal coronal reconstructions Date and time of exam:April 21, 2025, 12:25 PM Indications: Dizziness episodes beginning 2 days ago. Comparison: February 01, 2023 CTDI: vol (mGy):47.5 DLP: (mGycm):946. Technique: Multiple CT axial sections of the brain have been obtained, 5 mm slice thickness. Contrast has not been administered. 2-D sagittal, coronal reconstructions have been obtained Low dose protocols were performed. One or more of the following dose reduction techniques were used; automated exposure control, adjustment of the mA and/or KV according to patient size, use of iterative reconstruction technique. Findings: No significant ventricular enlargement. Intra-axial or extra-axial hemorrhage density is not seen. No mass effect or midline shift Basal cisterns are not remarkable. Fourth ventricle is midline. Cranial vault intact. Impression: Negative for acute hemorrhage, mass effect or midline shift Advise clinical correlation and follow-up accordingly.
--- NOTE | 2025-04-21 11:40 | XR_ITS ---
Examination: AP chest single view Technique: AP portable semiupright chest single view. Date and time: April 21, 2025, 12 0 2:00 PM, comparison January 22, 2025. Indications: Coughing beginning 3 days ago. Findings: Moderate enlargement cardiac contour. Prominence of the pulmonary vasculature. Suspicious for subtle edema at the lung bases. No lobar pneumonia. Right internal jugular dialysis catheter tip SVC satisfactory position Impression: Mild heart failure. No lobar pneumonia.
[2025-04-21 13:18] LABS: Basophils # (Auto) 0.0 Thou/mm3 (0.0-0.2); Basophils % (Auto) 0 % (0-2.5); Eosinophils # (Auto) 0.1 Thou/mm3 (0.0-0.5); Eosinophils % (Auto) 2 % (0-10); Hematocrit 42.1 % (36.0-46.0); Hemoglobin 13.7 g/dL (12.0-16.0); Immature Granulocytes Auto 0.02 Thou/mm3 (0.00-0.00); Lymphocytes # (Auto) 1.1 Thou/mm3 (1.0-4.8); Lymphocytes % (Auto) 19 % (10-50); Mean Corpuscular HGB Conc 32.5 g/dl (31.0-37.0); Mean Corpuscular Hemoglobin 30.9 pg (25.0-35.0); Mean Corpuscular Volume 95 fL (80-100); Monocytes # (Auto) 0.5 Thou/mm3 (0.0-0.8); Monocytes % (Auto) 8 % (0-12); Neutrophils # (Auto) 4.1 Thou/mm3 (1.8-7.7); Neutrophils % (Auto) 71 % (37-80); Nucleated Red Blood Cell # 0.00 Thou/mm3 (0.00-0.00); Nucleated Red Blood Cell % 0 /100 WBC (0); Platelet Count 107 Thou/mm3 (140-440); RDW Standard Deviation 52.3 fL (36.4-46.3); Red Blood Count 4.43 Miln/mm3 (4.00-5.20); White Blood Count 5.7 Thou/mm3 (3.6-11.0)
--- NOTE | 2025-04-21 13:23 | PC.NURSE ---
unable to place iv x 4. Dr Nguyễn informed. okay to dc fluids and ivl order per Dr Nguyễn
[2025-04-21 13:25] LABS: INR 1.2 (0.9-1.3); Partial Thromboplastin Time 22.2 Seconds (22.0-36.0); Prothrombin Time 12.6 Seconds (9.0-12.2)
[2025-04-21 13:48] LABS: Alanine Aminotransferase 77 U/L (10-49); Albumin, Serum 3.9 gm/dL (3.4-4.8); Albumin/Globulin Ratio 1.4 (1.2-2.2); Alkaline Phosphatase 123 U/L (46-116); Anion Gap 16 (7-16); Aspartate Amino Transferase 57 U/L (0-34); BUN/Creatinine Ratio 8 Ratio (12-20); Bilirubin,Total 0.3 mg/dL (0.3-1.2); Blood Urea Nitrogen 60 mg/dL (9-23); Calcium 10.2 mg/dL (8.3-10.6); Calcium (Corrected) 10.3 mg/dL (8.5-10.1); Carbon Dioxide 24.5 mMol/L (20.0-31.0); Chloride 102 mMol/L (98-107); Creatinine (Component) 7.4 mg/dL (0.6-1.3); Estimated Creatinine Clearance 5.2 mL/min (>60); Globulin 2.7 gm/dL (2.3-3.5); Glucose 80 mg/dL (74-106); Osmolality,Calculated 299 (275-295); Potassium 5.5 mMol/L (3.4-5.1); Sodium 142 mMol/L (136-145); Total Protein 6.6 gm/dL (5.7-8.2); eGFR 5 See Note
[2025-04-21 14:08] LABS: Troponin I 0.099 ng/mL (0.0-0.045)
--- NOTE | 2025-04-21 14:11 | PC.CC ---
1411-ASW received a request from the assigned RN to speak with the pt about home health and medi-patricia benefits. Pt and daughter reported that the pts medi-patricia is no longer valid and is wanting to know how to restart it again. ASW provided community resources to [facility] [employer] and [email or web address] . Pt and daughter were receptive.
[2025-04-21] MEDS: LOSARTAN POTASSIUM 25 MG TABLET 50 MG PO (14:28)
[2025-04-21] MEDS: NIFEdipine XL 30 MG TABCR 60 MG PO (14:29)
[2025-04-21] MEDS: SOD POLYSTYRENE SULFON SUSP 15 GM/60 ML BTL PO (15:46)
[2025-04-21] MEDS: MECLIZINE HCL 25 MG TABLET 12.5 MG PO (16:59)
[2025-04-21] MEDS: hydrALAZINE INJ 20 MG/ML VIAL 5 MG IVP (17:06)
[2025-04-21 17:30] LABS: Troponin I 0.156 ng/mL (0.0-0.045)
== END 2025-04-21 18:09 | disposition home or self-care (01) ==
PROVIDERS: Emergency Provider Family Medicine
DX: R42 Dizziness and giddiness (principal); I13.2 Hypertensive heart and chronic kidney disease with heart failure and with stage 5 chronic kidney disease, or end stage renal disease; N18.6 End stage renal disease; I50.9 Heart failure, unspecified; I25.10 Atherosclerotic heart disease of native coronary artery without angina pectoris; R94.31 Abnormal electrocardiogram [ECG] [EKG]; E78.00 Pure hypercholesterolemia, unspecified; Z95.5 Presence of coronary angioplasty implant and graft; Z99.2 Dependence on renal dialysis
CPT/HCPCS: 36415; 70450; 71045; 80053; 81001; 84484; 85025; 85610; 85730; 93005; 96374; 99284; J0360; A9270

== ENCOUNTER → 2025-04-24 | Outpatient (CLI) | payer OTHER, MEDICAID, SELFPAY ==
[2025-04-24 16:33] LABS: Alanine Aminotransferase 24 U/L (10-49); Albumin, Serum 4.2 gm/dL (3.4-4.8); Albumin/Globulin Ratio 1.4 (1.2-2.2); Alkaline Phosphatase 100 U/L (46-116); Anion Gap 15 (7-16); Aspartate Amino Transferase 14 U/L (0-34); BUN/Creatinine Ratio 4 Ratio (12-20); Bilirubin,Total 0.6 mg/dL (0.3-1.2); Blood Urea Nitrogen 16 mg/dL (9-23); Calcium 10.6 mg/dL (8.3-10.6); Calcium (Corrected) 10.6 mg/dL (8.5-10.1); Carbon Dioxide 27.3 mMol/L (20.0-31.0); Chloride 98 mMol/L (98-107); Creatinine (Component) 3.8 mg/dL (0.6-1.3); Globulin 3.1 gm/dL (2.3-3.5); Glucose 109 mg/dL (74-106); Osmolality,Calculated 281 (275-295); Potassium 3.7 mMol/L (3.4-5.1); Sodium 140 mMol/L (136-145); Total Protein 7.3 gm/dL (5.7-8.2); eGFR 11 See Note
[2025-04-24 16:37] LABS: D-Dimer 2060 ng/mL (<600)
[2025-04-24 16:50] LABS: B-Type Natriuretic Peptide 968 pg/mL (0-100)
== END | disposition home or self-care (01) ==
LOC: COPL 14:15
PROVIDERS: PCP Family Medicine; Referring Provider Nurse Practitioner Family; Visit Provider Nurse Practitioner Family
DX: N18.6 End stage renal disease (principal); R55 Syncope and collapse
CPT/HCPCS: 36415; 80053; 83880; 85379

== ENCOUNTER → 2025-06-28 | Outpatient (CLI) | payer OTHER, MEDICAID, SELFPAY ==
[2025-06-28 13:57] LABS: Anion Gap 14 (7-16); BUN/Creatinine Ratio 7 Ratio (12-20); Blood Urea Nitrogen 25 mg/dL (9-23); Calcium 9.1 mg/dL (8.3-10.6); Carbon Dioxide 25.8 mMol/L (20.0-31.0); Chloride 102 mMol/L (98-107); Creatinine (Component) 3.5 mg/dL (0.6-1.3); Glucose 105 mg/dL (74-106); Osmolality,Calculated 287 (275-295); Potassium 3.8 mMol/L (3.4-5.1); Sodium 142 mMol/L (136-145); eGFR 12 See Note
== END | disposition home or self-care (01) ==
LOC: COPL 13:08
PROVIDERS: PCP Family Medicine; Referring Provider Internal Medicine; Visit Provider Internal Medicine
DX: I25.10 Atherosclerotic heart disease of native coronary artery without angina pectoris (principal); I48.91 Unspecified atrial fibrillation
CPT/HCPCS: 36415; 80048

== ENCOUNTER → 2025-07-05 | Outpatient (CLI) | payer OTHER, MEDICAID, SELFPAY ==
--- NOTE | 2025-07-05 12:00 | XR_ITS ---
Examination: CTA carotids with intravenous contrast CTA brain, head with intravenous contrast. 2-D sagittal, coronal reconstructions. 3-D reconstructions. Exam date and time: July 05, 2025, 1314 hours INDICATIONS: Dizziness episodes 3 months CTDI: vol (mGy) 27.3 DLP: (mGycm) 409 Technique: Multiple CTA axial brain, head carotid images post intravenous contrast injection 75 cc, [id number]. 2-D sagittal, coronal reconstructions. 3-D reconstructions, 3-D post processing including vascular maximum intensity projection images. Low dose protocols were performed. One or more of the following dose reduction techniques were used; automated exposure control, adjustment of the mA and/or KV according to patient size, use of iterative reconstruction technique. Findings: No common carotid carotid bifurcation or significant internal carotid artery stenoses Dominant left vertebral artery with no critical vertebral artery stenoses Intracranial vertebral arteries basilar artery posterior cerebral branches fill with no large vessel occlusions M1 segments middle cerebral arteries anterior cerebral arteries fill with no large vessel occlusions IMPRESSION: No significant neck arterial stenoses
== END | disposition home or self-care (01) ==
LOC: SCAT 11:30
PROVIDERS: PCP Family Medicine; Referring Provider Internal Medicine; Visit Provider Internal Medicine
DX: R42 Dizziness and giddiness (principal)
CPT/HCPCS: 70498; A4649; Q9967